=== PATIENT | female | born 1940 | race Two or more races ===

== ENCOUNTER 2018-05-21 16:06 | Emergency (ER) | payer OTHER ==
[~2018-05-21] VITALS: Ht 160 cm; Wt 107.5 kg
[2018-05-21] MEDS ORDERED: TOPROL XL25 M1 (16:21)
[2018-05-21] MEDS ORDERED: SYNTHROID125 MCG (16:21)
[2018-05-21] MEDS ORDERED: AVAPRO300 MG (16:21)
[2018-05-21] MEDS ORDERED: LIPITOR20 MG (16:22)
== END 2018-05-21 18:51 | disposition home or self-care (01) ==
LOC: ER 16:06
DX: G56.01 Carpal tunnel syndrome, right upper limb (principal); M54.2 Cervicalgia

== ENCOUNTER 2023-01-10 10:11 | Outpatient (CLI) | payer OTHER ==
[~2023-01-10 10:11] MED LIST: AVAPRO300 MG; LIPITOR20 MG; SYNTHROID125 MCG; TOPROL XL25 M1
== END 2023-01-10 10:14 | disposition home or self-care (01) ==
LOC: SONOGRAMA 10:11
PROVIDERS: ATTEND Pathology Anatomic Pathology & Clinical Pathology
DX: E04.2 Nontoxic multinodular goiter (principal)

== ENCOUNTER → 2024-10-27 | Emergency (ER) | payer OTHER ==
[~2024-10-27] VITALS: Ht 162.6 cm; Wt 101.6 kg
[~2024-10-27] MED LIST changes: +ACETAMINOPHEN 500 MG GEL..CAP PO ONE; +CARDURA1 MG; +NORFLEX100MG PO; +ORPHENADRINE CITRATE 30 MG/ML AMPUL IM ONE
[2024-10-27 21:29] LABS: BASO % 0.6 % (0.1-1.2); EOS # 0.33 (0.04-0.54); EOS % 3.9 % (0.7-7.0); LYMPH # 2.30 (1.18-3.74); LYMPH % 27.3 % (19.3-53.1); MEAN PLATELET VOLUME 11.80 fl (9.4-12.4); MONO # 0.46 (0.24-0.82); MONO % 5.5 % (4.7-12.5); NEUT # 5.25 (1.56-6.13); NEUT % 62.3 % (34.0-71.1); RED CELL DISTRIBUTION WIDTH 13.0 % (11.6-14.4)
[2024-10-27 22:07] LABS: ALT/SGPT 32.0 U/L (12-78); AST/SGOT 25.0 U/L (15-37); BILIRUBIN TOTAL 0.22 mg/dL (0.3-1.2); BUN CREA RATIO 21.0 (7.0-25.0); CREATININE SERUM 0.91 mg/dL (0.55-1.02); GFR 59.04; GLOBULINA 3.6 G/DL (2.4-3.5); GLUCOSE FASTING 141.0 mg/dL (65-100); OSMOLALITY SERUM 282.0 MOSM/KG (275-295)
== END | disposition home or self-care (01) ==
LOC: ER 18:35
PROVIDERS: General Practice
DX: S93.401A Sprain of unspecified ligament of right ankle, initial encounter (principal); S80.02XA Contusion of left knee, initial encounter; S80.01XA Contusion of right knee, initial encounter; W10.8XXA Fall (on) (from) other stairs and steps, initial encounter; Y93.89 Activity, other specified; Y92.59 Other trade areas as the place of occurrence of the external cause; Y99.9 Unspecified external cause status; R42 Dizziness and giddiness; M54.50 Low back pain, unspecified; E11.9 Type 2 diabetes mellitus without complications; Z79.84 Long term (current) use of oral hypoglycemic drugs; Z88.6 Allergy status to analgesic agent; Z85.3 Personal history of malignant neoplasm of breast
CPT/HCPCS: 36415; 70450; 72100; 73560; 73610; 99284; J2360